=== PATIENT | female | born 1960 | race African-American/Black ===

== ENCOUNTER 2017-10-19 11:39 | Emergency (ER) | payer OTHER ==
[~2017-10-19] VITALS: Ht 162.6 cm; Wt 85.0 kg
[2017-10-19 11:41] VITALS: TEMP 37; Ht 162.6 cm; Wt 85.0 kg
[2017-10-19] MEDS ORDERED: LIDOCAINE 1% BUFFERED INJ 20 ML VIAL INFIL ONE (12:00)
[2017-10-19 12:43] VITALS: BP 119/82; PULSE 73; O2SAT 98
--- NOTE | 2017-10-20 16:50 | EMERGENCY ROOM VISIT NOTE ---
ED Visit Note First contact with patient: 11:51 Chief Complaint: I fell last night and cut my bottom lip. History of Present Illness: Ms. Mercedes is a 57-year-old female who ambulates into the ED complaining of a internal lower lip laceration. Patient reports last evening approximately 20 hours ago she was taking a walk. She reports she remembers tripping over an uneven pavement and fell to the ground striking her lip and head. She reports before the fall she had no lightheaded or dizziness and at the time of the fall she did not have a loss of consciousness. She reports for approximately 1-2 hours after the fall she had a mild headache predominantly over the bifrontal area but the headache has resolved and not returned. She denies any associated head injury symptoms including dizziness, lightheadedness, visual changes, hearing changes, difficulty speaking, difficulty swallowing, difficulty arousing from sleep, and nausea/vomiting. Associated with her fall she does report that she is having an achy sensation in the left maxillary incisor and a throbbing pain of the lower lip in the area of her laceration. Currently she rates her dental discomfort 1/10. The pain is nonradiating. The pain is worsened with palpation. She has not identified any alleviating factors related to the pain. She has not taken medication for pain prior to arrival at the hospital. Her lower lip pain is described as a throbbing sensation. She rates her discomfort 4.5/10. Her pain is nonradiating. Her pain worsens with palpation. She has not identified any alleviating factors related to the pain. She has not taken any medications for pain. Additionally she denies fevers, chills, sweats, other soft tissue injuries, facial/mandibular pain, neck pain, chest pain, shortness of breath, abdominal pain, nausea/vomiting, extremity pain. Review of Systems: As noted above in history of present illness. 8 body systems were reviewed and found to be negative as noted above. Past Medical History: Patient denies. Current Medications: Patient denies. Allergies to Medications: Patient denies. Social History: Patient is currently university student; she feels safe in her home environment; she denies tobacco use. Tetanus Immunization Status: Patient reports up-to-date. Physical Examination: Vital Signs: Date Time Temp Pulse Resp B/P (MAP) Pulse Ox O2 Delivery O2 Flow Rate FiO2 10/19/17 12:43 73 16 119/82 98 Room Air 10/19/17 11:41 37.0 104 18 146/84 97 Room Air GENERAL: 57-year-old female in mild distress due to pain, nontoxic-appearing, afebrile and hemodynamically stable. NEUROLOGICAL: Awake, alert and oriented to person, place and time. Answering questions appropriately and following commands. Normal gait. Good hand eye coordination. No focal motor or sensory deficits. Cranial nerves II through XII grossly intact. Romberg test negative. Normal rapid alternating movements of the hands and fingers. Normal heel cooper test. Good short-term and long- term recall. SKIN: Warm, dry and pink. Lower Lip: Over the anterior aspect of the lower lip patient has a 2.1 cm full-thickness laceration is gaping approximately 7 mm. Mild surrounding swelling. No active bleeding. HEENT: Atraumatic and normocephalic. Skull: No bony deformity, bony crepitus, swelling or ecchymosis. No raccoons signs or snowden signs. No drainage from the ears of the nostril; no hemotympanum. Face: No bony deformity, bony crepitus, swelling or ecchymosis. No malocclusion. Laceration as noted above. Mild tenderness to the right maxillary incisor. The tooth is stable in its socket and there is no bleeding around the base. I do not see any damage done to the tooth. PERRLA. EOMI without nystagmus. Sclera white and conjunctiva pink. Oral cavity moist and pink. Speech normal and clear. Trachea midline. No jugular venous distention. BACK: No tenderness over the bony cervical, thoracic and lumbar spine. No tenderness throughout the paraspinous muscles. Full range of motion of the cervical spine. No CVA tenderness. THORAX: Lungs sounds are clear to auscultation and equal bilaterally with symmetrical chest wall. No crepitus, tenderness, subcutaneous air or deformities noted. ABDOMEN: Soft and nontender. Positive bowel sounds in all quadrants. No guarding, rigidity or organomegaly. EXTREMITIES: Moves all extremities well on command and with purpose. All distal neurovascular statuses are intact and equal bilaterally. ED Course: Patient is assessed as noted above. Patient's medication list was reviewed. Patient was offered pain medication and refused. Wound Repair: Complexity: Basic Verbal consent was obtained after the risks and benefits were explained. The skin was prepped with betadine and a sterile field set. Wound edges of the wound was anesthetized with 1.5 ml buffered 1% lidocaine. The wound was explored for foreign bodies and none found. Copious irrigation was performed using sterile saline. With direct pressure the bleeding subsided. Debridement was not performed. The wound edges were approximated using 6-0 Vicryl with 2 simple interrupted sutures. Hemostasis and excellent approximation was achieved. Antibacterial ointment and a sterile dressing applied. No complications and the patient tolerated the procedure well. Patient was educated about today's findings and instructed on her treatment plan ; she verbalized understanding and agreement with this plan. CLINICAL IMPRESSION: Lip laceration. Disposition: Patient discharged home in stable condition; prior to departure he was reassessed and subjectively reported she was feeling the same and rated her discomfort 4.5/10. Plan: Comfort measures, wound care, and signs of infection were discussed with the patient. Patient was prescribed amoxicillin 875 mg 2 times a day for 5 days for antibiotic coverage for delayed closure. Patient was encouraged to keep her mouth clean with brushing, flossing and gargling with salt water for 5 times a day. Patient was educated on signs of head injury. Patient was encouraged to follow-up with dentistry for definitive care and treatment. Patient was encouraged return the ED for signs of infection Patient was encouraged to follow-up with personal physician or return emergency department in days and/or signs of infection, signs of head injury or any new/ concerning symptoms.
== END 2017-10-19 12:55 | disposition home or self-care (01) ==
LOC: C.EDB 11:40 → C.EDD 12:55
DX: S01.511A Laceration without foreign body of lip, initial encounter (principal); W18.09XA Striking against other object with subsequent fall, initial encounter; Y92.480 Sidewalk as the place of occurrence of the external cause